=== PATIENT | male | born 1950 | race Caucasian/White ===

== ENCOUNTER 2017-06-30 07:52 | Day surgery (SDC) | payer MEDICARE ==
[2017-06-30] MEDS ORDERED: Propofol 10 mg/ml Inj (20 ML) ONE ×2 (10:55→11:17)
[2017-06-30 11:52] VITALS: TEMP 97.5
[2017-06-30 13:44] VITALS: RESP 15
[2017-06-30 13:47] VITALS: BP 120/72; PULSE 76; O2SAT 98
== END 2017-06-30 13:00 | disposition home or self-care (01) ==
LOC: C.ENDO 07:52
PROVIDERS: ATTEND Internal Medicine Gastroenterology
DX: D12.2 Benign neoplasm of ascending colon (principal); K29.70 Gastritis, unspecified, without bleeding; K64.8 Other hemorrhoids; K57.90 Diverticulosis of intestine, part unspecified, without perforation or abscess without bleeding; K20.9 Esophagitis, unspecified
CPT/HCPCS: 43239; 45388; 82948; 88300; 88305; J2704; J3010